=== PATIENT | female | born 1995 | race Caucasian/White ===

== ENCOUNTER 2018-01-04 18:05 | Observation (INO) | payer SELFPAY ==
[~2018-01-04] VITALS: Ht 162.6 cm; Wt 43.3 kg
[~2018-01-04 18:05] MED LIST: HYDR473S9 PO; HYDR474S3 PO
[2018-01-04] MEDS ORDERED: fentaNYL CITR 100 MCG/2 ML AMP IVP ONE ×2 (18:20→19:05)
[2018-01-04] MEDS ORDERED: ONDANSETRON 4 MG/2 ML VIAL IVP ONE (18:20)
[2018-01-04] MEDS ORDERED: LORazepam 2 MG/ML VIAL IVP ONE (18:20)
--- NOTE | 2018-01-04 18:27 | ER Report ---
History and Physical Time Seen By MD: 18:08 Hx. of Stated Complaint: RUQ AND BACK PAIN THAT RADIATE UP INTO CHEST. HPI/ROS CHIEF COMPLAINT: Abdomen, chest, back pain HISTORY OF PRESENT ILLNESS: Patient is a 22-year-old female who presents the ED with complaint of right upper quadrant abdominal pain that started about 3-4 hours ago. She states that it has been radiating into her back and then into her right chest area. She has had some nausea but denies any vomiting, diarrhea , constipation. She states that she has had some dysuria as well but has not noted any hematuria or increased urinary frequency. She denies any fever. She denies any shortness of breath. Patient that she was having some heartburn and did take some Tums with no relief. REVIEW OF SYSTEMS: Constitutional: No fever, no chills. Eyes: No discharge. ENT: No sore throat. Cardiovascular: See history of present illness. No palpitations. Respiratory: No cough, no shortness of breath. Gastrointestinal: See history of present illness. Genitourinary: See history of present illness. Musculoskeletal: See history of present illness. Skin: No rashes. Neurological: No headache. Allergies: Coded Allergies: shellfish derived (Verified Allergy, Unknown, 01/04/18) Home Meds Active Scripts Hydrocodone/Acetaminophen 7.5/325 MG/15 ML (Lortab 7.5 mg-325 mg/15 ml) 474 Ml Solution, 2 TSP PO Q4-6H Y for PAIN, #300 ML Prov:CELIO RENE GUM DIPPER 03/10/17 Reviewed Nurses Notes: Yes Old Medical Records Reviewed: Yes Hx Substance Use Disorder: No Constitutional Vital Sign - Last 24 Hours 01/04/18 01/04/18 01/04/18 01/04/18 18:09 18:10 18:12 18:20 Temp 97.5 Pulse 83 Resp 26 B/P (MAP) 141/127 (132) 141/127 119/103 (108) Pulse Ox 92 66 O2 Delivery Room Air 01/04/18 01/04/18 01/04/18 01/04/18 18:30 18:35 18:40 18:55 Pulse 75 62 Resp 12 33 B/P (MAP) 123/103 (110) Pulse Ox 82 96 01/04/18 01/04/18 01/04/18 01/04/18 19:00 19:10 19:25 19:30 Pulse 79 74 Resp 16 27 B/P (MAP) 126/105 (112) 122/77 (92) Pulse Ox 85 65 01/04/18 01/04/18 01/04/18 01/04/18 19:40 19:55 20:00 20:10 Pulse 76 70 84 Resp 12 6 22 B/P (MAP) 107/64 (78) Pulse Ox 99 100 100 01/04/18 01/04/18 01/04/18 01/04/18 20:15 20:30 20:45 21:00 Pulse 85 97 74 72 Resp 17 28 24 14 B/P (MAP) 112/69 (83) 117/77 (90) Pulse Ox 100 100 98 97 01/04/18 21:15 Pulse 59 Pulse Ox 98 Intake and Output 01/04/18 01/04/18 01/05/18 15:00 23:00 07:00 Intake Total 1000 ml Balance 1000 ml Physical Exam General Appearance: The patient is alert, has no immediate need for airway protection and no signs of toxicity. Patient appears to be in moderate distress. Eyes: Pupils equal and round no pallor or injection. ENT, Mouth: Mucous membranes are moist. Respiratory: There are no retractions, lungs are clear to auscultation. Cardiovascular: Regular rate and rhythm. Gastrointestinal: There is pain with palpation of the right upper quadrant area. She has not had any rebound but does have some some guarding. Normal bowel sounds in all 4 quadrants. Skin: Warm and dry, no rashes. Musculoskeletal: Neck is supple non tender. Extremities are nontender, nonswollen and have full range of motion. DIFFERENTIAL DIAGNOSIS: After history and physical exam differential diagnosis was considered for abdominal pain including but not limited to appendicitis, cholecystitis, gastritis and urinary tract infection. Medical Decision Making Data Points Result Diagram: 01/04/18 18101/04/18 181 Laboratory Hematology Test 01/04/18 18:10 01/04/18 20:10 Red Blood Count 4.95 M/uL (4.17-5.56) Mean Corpuscular Volume 85.9 fL (80.0-96.0) Mean Corpuscular Hemoglobin 29.9 pg (26.0-33.0) Mean Corpuscular Hemoglobin Concent 34.8 g/dL (32.0-36.0) Red Cell Distribution Width 12.1 % (11.5-14.5) Mean Platelet Volume 7.0 fL (7.2-11.1) Neutrophils (%) (Auto) 56.3 % (39.4-72.5) Lymphocytes (%) (Auto) 31.7 % (17.6-49.6) Monocytes (%) (Auto) 10.2 % (4.1-12.4) Eosinophils (%) (Auto) 1.2 % (0.4-6.7) Basophils (%) (Auto) 0.6 % (0.3-1.4) Nucleated RBC Relative Count (auto) 0.1 /100WBC Neutrophils # (Auto) 5.6 K/uL (2.0-7.4) Lymphocytes # (Auto) 3.2 K/uL (1.3-3.6) Monocytes # (Auto) 1.0 K/uL (0.3-1.0) Eosinophils # (Auto) 0.1 K/uL (0.0-0.5) Basophils # (Auto) 0.1 K/uL (0.0-0.1) Nucleated RBC Absolute Count (auto) 0.01 K/uL Sodium Level 140 mmol/L (137-145) Potassium Level 3.1 mmol/L (3.5-5.0) Chloride Level 99 mmol/L (98-107) Carbon Dioxide Level 26 mmol/L (22-31) Blood Urea Nitrogen 12 mg/dl (7-18) Creatinine 0.70 mg/dl (0.52-1.04) Glomerular Filtration Rate Calc > 60.0 Random Glucose 92 mg/dl (75-110) Calcium Level 9.5 mg/dl (8.4-10.2) Total Bilirubin 0.5 mg/dl (0.2-1.3) Aspartate Amino Transf (AST/SGOT) 69 U/L (0-35) Alanine Aminotransferase (ALT/SGPT) 122 U/L (0-56) Alkaline Phosphatase 99 U/L (0-126) Troponin I < 0.012 ng/ml Total Protein 8.2 gm/dl (6.3-8.2) Albumin 4.4 g/dl (3.5-5.0) Lipase 89 U/L (23-300) Human Chorionic Gonadotropin, Qual Negative (NEGATIVE) Serum Alcohol < 10 mg/dl Urine Color Yellow Urine Clarity Clear Urine pH 6.0 pH (4.8-9.5) Urine Specific [place] 1.016 Urine Protein Negative mg/dL (NEGATIVE) Urine Glucose (UA) Negative mg/dL (NEGATIVE) Urine Ketones Trace mg/dL (NEGATIVE) Urine Blood Negative (NEGATIVE) Urine Nitrite Negative (NEGATIVE) Urine Bilirubin Negative (NEGATIVE) Urine Urobilinogen Negative mg/dL (0.2-1.9) Urine Leukocyte Esterase Negative (NEGATIVE) Urine RBC <1 /HPF (0-2/HPF) Urine WBC 1 /HPF (0-5/HPF) Urine Squamous Epithelial Cells Many /LPF (</=FEW) Urine Bacteria Negative /HPF (NONE-FEW) Urine Mucus None /HPF (NONE-FEW) Chemistry Test 01/04/18 18:10 01/04/18 20:10 White Blood Count 10.0 k/uL (4.5-11.0) Red Blood Count 4.95 M/uL (4.17-5.56) Hemoglobin 14.8 g/dL (12.0-16.0) Hematocrit 42.5 % (34.0-47.0) Mean Corpuscular Volume 85.9 fL (80.0-96.0) Mean Corpuscular Hemoglobin 29.9 pg (26.0-33.0) Mean Corpuscular Hemoglobin Concent 34.8 g/dL (32.0-36.0) Red Cell Distribution Width 12.1 % (11.5-14.5) Platelet Count 295 K/uL (150-450) Mean Platelet Volume 7.0 fL (7.2-11.1) Neutrophils (%) (Auto) 56.3 % (39.4-72.5) Lymphocytes (%) (Auto) 31.7 % (17.6-49.6) Monocytes (%) (Auto) 10.2 % (4.1-12.4) Eosinophils (%) (Auto) 1.2 % (0.4-6.7) Basophils (%) (Auto) 0.6 % (0.3-1.4) Nucleated RBC Relative Count (auto) 0.1 /100WBC Neutrophils # (Auto) 5.6 K/uL (2.0-7.4) Lymphocytes # (Auto) 3.2 K/uL (1.3-3.6) Monocytes # (Auto) 1.0 K/uL (0.3-1.0) Eosinophils # (Auto) 0.1 K/uL (0.0-0.5) Basophils # (Auto) 0.1 K/uL (0.0-0.1) Nucleated RBC Absolute Count (auto) 0.01 K/uL Glomerular Filtration Rate Calc > 60.0 Calcium Level 9.5 mg/dl (8.4-10.2) Total Bilirubin 0.5 mg/dl (0.2-1.3) Aspartate Amino Transf (AST/SGOT) 69 U/L (0-35) Alanine Aminotransferase (ALT/SGPT) 122 U/L (0-56) Alkaline Phosphatase 99 U/L (0-126) Troponin I < 0.012 ng/ml Total Protein 8.2 gm/dl (6.3-8.2) Albumin 4.4 g/dl (3.5-5.0) Lipase 89 U/L (23-300) Human Chorionic Gonadotropin, Qual Negative (NEGATIVE) Serum Alcohol < 10 mg/dl Urine Color Yellow Urine Clarity Clear Urine pH 6.0 pH (4.8-9.5) Urine Specific [place] 1.016 Urine Protein Negative mg/dL (NEGATIVE) Urine Glucose (UA) Negative mg/dL (NEGATIVE) Urine Ketones Trace mg/dL (NEGATIVE) Urine Blood Negative (NEGATIVE) Urine Nitrite Negative (NEGATIVE) Urine Bilirubin Negative (NEGATIVE) Urine Urobilinogen Negative mg/dL (0.2-1.9) Urine Leukocyte Esterase Negative (NEGATIVE) Urine RBC <1 /HPF (0-2/HPF) Urine WBC 1 /HPF (0-5/HPF) Urine Squamous Epithelial Cells Many /LPF (</=FEW) Urine Bacteria Negative /HPF (NONE-FEW) Urine Mucus None /HPF (NONE-FEW) Toxicology Test 01/04/18 18:10 Serum Alcohol < 10 mg/dl Urinalysis Test 01/04/18 20:10 Urine Color Yellow Urine Clarity Clear Urine pH 6.0 pH (4.8-9.5) Urine Specific [place] 1.016 Urine Protein Negative mg/dL (NEGATIVE) Urine Glucose (UA) Negative mg/dL (NEGATIVE) Urine Ketones Trace mg/dL (NEGATIVE) Urine Blood Negative (NEGATIVE) Urine Nitrite Negative (NEGATIVE) Urine Bilirubin Negative (NEGATIVE) Urine Urobilinogen Negative mg/dL (0.2-1.9) Urine Leukocyte Esterase Negative (NEGATIVE) Urine RBC <1 /HPF (0-2/HPF) Urine WBC 1 /HPF (0-5/HPF) Urine Squamous Epithelial Cells Many /LPF (</=FEW) Urine Bacteria Negative /HPF (NONE-FEW) Urine Mucus None /HPF (NONE-FEW) EKG/Imaging Imaging Gallbladder US: IMPRESSION: Mild to moderate gallbladder distention. Small volume gallbladder sludge. Positive sonographic Asencio sign. No gallstone, gallbladder wall thickening or pericholecystic fluid. Report Dictated By: Liam Torres MD at 01/04/2018 8:19 PM Report E-Signed By: Liam Torres MD at 01/04/2018 8:22 PM CXR: IMPRESSION: Negative chest. Report Dictated By: Nakul Sharma MD at 01/04/2018 7:02 PM Report E-Signed By: Nakul Sharma MD at 01/04/2018 7:03 PM Abdomen/Pelvis CT: IMPRESSION: 1. The gallbladder is significantly distended with a small sliver of pericholecystic fluid. CT appearance is suspicious for cholecystitis. No calcified gallstones by CT. 2. No other acute intra-abdominal findings by noncontrast CT imaging. 3. The visualized appendix is unremarkable. 4. Trace amount of free fluid in the pelvis, within normal limits. Report Dictated By: Ralph Hameed MD at 01/04/2018 10:10 PM Report E-Signed By: Ralph Hameed MD at 01/04/2018 10:15 PM ED Course/Re-evaluation Clinical Indication for ER IV: Hydration ED Course Patient will be given 50 micrograms of fentanyl IV and 1mg IV lorazepam. Will obtain labs and CXR. 01/04/2018 7:03:00 pm - assessed all labs with patient. She does have some elevated liver enzymes. She denies any alcohol use or Tylenol use. She states that her mother did have some gallbladder issues in the past and she is concerned about this. She states that she has been having issues with heartburn recently. She states that the initial dose of the fentanyl did help but now she is having pain again. Will give her another 50 g of fentanyl IV and obtain a gallbladder ultrasound. 01/04/2018 10:35:59 pm - 4mg IV morphine for pain relief. Discussed CT results with patient. It is suspicious for cholecystitis. Discussed patient with Dr. Almaraz, surgeon, who will come and evaluate the patient. 01/04/2018 11:15:01 pm - Dr. Almaraz, surgery, will admit patient under his care with plan for surgery in the morning. Decision to Disposition Date: Jan 04, 2018 Decision to Disposition Time: 23:14 Depart Departure Latest Vital Signs Vital Signs Date Time Temp Pulse Resp B/P (MAP) Pulse Ox O2 Delivery O2 Flow Rate FiO2 01/04/18 21:15 59 98 01/04/18 21:00 14 117/77 (90) 01/04/18 18:10 97.5 Room Air Impression: Primary Impression: Acute cholecystitis Condition: Improved Disposition: Admitted from ER HOSTEL MANAGER/PA consult with MD: Verbally MD Consult Note: Dr. Teague, ED Dr. Almaraz, Surgery PHILL OLVERA PA-C Jan 04, 2018 18:27
[2018-01-04 18:30] LABS: PLATELET COUNT, AUTOMATED 295 K/uL (150-450)
[2018-01-04] MEDS ORDERED: NS(*) 0.9% 1000 ML BAG 1,000 ML IV ONE (18:55)
--- NOTE | 2018-01-04 19:06 | RADIOLOGY IMAGING REPORT ---
FACILITY: [facility] - [place] PATIENT NAME: Ashlie Leslie : 1995 MR: [id number] V: [id number] EXAM DATE: ORDERING PHYSICIAN: PHILL OLVERA TECHNOLOGIST: Location: [facility] [place] Patient: Ashlie Leslie : 1995 Visit/Account:[id number] Date of Sevice: 01/04/2018 Examination: CHEST PA AND LAT Comparison: None. History: chest pain Findings: Cardiac and hilar contour size is normal. No consolidation, nodule, or peribronchial inflam mation. No pneumothorax, edema, or effusion. Osseous structures are intact. IMPRESSION: Negative chest. Report Dictated By: Nakul Sharma MD at 01/04/2018 7:02 PM Report E-Signed By: Nakul Sharma MD at 01/04/2018 7:03 PM WSN:[id number]
--- NOTE | 2018-01-04 20:25 | RADIOLOGY IMAGING REPORT ---
FACILITY: [facility] - [place] PATIENT NAME: Ashlie Leslie : 1995 MR: [id number] V: [id number] EXAM DATE: ORDERING PHYSICIAN: PHILL OLVERA TECHNOLOGIST: Location: [facility] - [place], [place] Patient: Ashlie Leslie : 1995 Visit/Account:[id number] Date of Sevice: 01/04/2018 EXAMINATION: Right upper quadrant abdominal ultrasound HISTORY: Right upper quadrant pain COMPARISON: None. FINDINGS: The partially visualized IVC and aorta are normal. The liver is normal in echogenicity and size. The gallbladder is mild to moderately distended. No gallstones or gallbladder wall thickening. No per icholecystic fluid. Positive sonographic Asencio sign. Common bile duct is normal measuring 2 mm. Smal l amount of gallbladder sludge. Normal right kidney measures 10.1 cm sagittal dimension. IMPRESSION: Mild to moderate gallbladder distention. Small volume gallbladder sludge. Positive sonographic Asencio sign. No gallstone, gallbladder wall thickening or pericholecystic fluid. Report Dictated By: Liam Torres MD at 01/04/2018 8:19 PM Report E-Signed By: Liam Torres MD at 01/04/2018 8:22 PM WSN:[id number]
[2018-01-04] MEDS ORDERED: MORPHINE 4 MG/ML SDV IVP ONE (21:35)
--- NOTE | 2018-01-04 22:19 | RADIOLOGY IMAGING REPORT ---
FACILITY: [facility] - [place] PATIENT NAME: Ashlie Leslie : 1995 MR: [id number] V: [id number] EXAM DATE: ORDERING PHYSICIAN: PHILL OLVERA TECHNOLOGIST: Location: [facility] Patient: Ashlie Leslie : 1995 Visit/Account:[id number] Date of Sevice: 01/04/2018 EXAMINATION: CT abdomen and pelvis without IV contrast HISTORY: Right upper quadrant and right lower quadrant pain with palpation. TECHNIQUE: Axial CT images of the abdomen and pelvis were obtained without IV contrast, with ferreira l and sagittal 2D reconstructed images. One of the following dose optimization techniques was utilized in the performance of this exam: Autom ated exposure control; adjustment of the mA and/or kV according to the patient's size; or use of an i terative reconstruction technique. Specific details can be referenced in the facility's radiology C T exam operational policy. COMPARISON: Abdominal ultrasound performed earlier today. FINDINGS: Evaluation of the solid and viscus parenchymal organs is limited without the benefit of IV contrast. Liver: Negative. Gallbladder and bile ducts: The gallbladder is significantly distended, measuring up to 4 cm in diam eter, and at least 9 cm in length. No calcified gallstones. There is a small sliver of pericholecysti c fluid. No bile duct dilatation. Spleen: Negative. Pancreas: Negative. Adrenal glands: Negative. Kidneys: Negative. No urinary calculi or hydronephrosis. Bowel and peritoneum: The small bowel and colon are normal in caliber. No bowel obstruction. The rosaura endix is segmentally visualized in the right lower quadrant and unremarkable where seen. Trace amount of free fluid in the pelvis. No free intraperitoneal air. Pelvic structures: Grossly unremarkable by CT. No large adnexal cyst in the pelvis. Lymph node assessment: Negative. Vessels: Normal caliber abdominal aorta. Musculoskeletal: Negative. Body wall: Negative. Lung bases: Negative. IMPRESSION: 1. The gallbladder is significantly distended with a small sliver of pericholecystic fluid. CT appear ance is suspicious for cholecystitis. No calcified gallstones by CT. 2. No other acute intra-abdominal findings by noncontrast CT imaging. 3. The visualized appendix is unremarkable. 4. Trace amount of free fluid in the pelvis, within normal limits. Report Dictated By: Ralph Hameed MD at 01/04/2018 10:10 PM Report E-Signed By: Ralph Hameed MD at 01/04/2018 10:15 PM WSN:[id number]
[2018-01-04] MEDS ORDERED: NORMOSOL R SOLN(*) 1000 ML BAG 1,000 ML IV PRN (23:24)
--- NOTE | 2018-01-04 23:24 | General Surgery 1 H&P ---
History of Present Illness Chief Complaint abdominal pain History of Present Illness 22 yo female with a one day history of epigastric and right upper quadrant pain with radiation to the back, nausea, no emesis, no fever. she has had several similar episodes in the past, never as severe or as persistent. seen in ed, ultrasound shows sludge in the gall bladder. ct shows acute cholecystis. History Other Past Surgeries: toe and control implant Home Meds Active Scripts Hydrocodone/Acetaminophen 7.5/325 MG/15 ML (Lortab 7.5 mg-325 mg/15 ml) 474 Ml Solution, 2 TSP PO Q4-6H Y for PAIN, #300 ML Prov:CELIO RENE RAILROAD SHOP INSPECTOR 03/10/17 Allergies: Coded Allergies: shellfish derived (Verified Allergy, Unknown, 01/04/18) Review of Systems All Systems Reviewed/Normal: Yes Exam Vital Signs Date Time Temp Pulse Resp B/P (MAP) Pulse Ox O2 Delivery O2 Flow Rate FiO2 01/04/18 21:15 59 98 01/04/18 21:00 14 117/77 (90) 01/04/18 18:10 97.5 Room Air General Appearance: Alert, Awake Cardiovascular: Regular Rate and Rhythm Respiratory: Clear to Auscultation GI: Other (soft with guarding in the right upper quadrant.) Medical Decision Making Data Points Result Diagram: 01/04/18180901/04/181809 Assessment and Plan Problems: (1) Acute cholecystitis Status: Acute Assessment & Plan: admit and proceed with a laparoscopic cholecystectomy in the morning. Copies to: ANDREW CARLSON MD Venous Thromboembolism Antithrombotics Is Pt On Any Antithrombotics?: No ANDREW CARLSON MD Jan 04, 2018 23:24
[2018-01-04] MEDS ORDERED: ONDANSETRON 4 MG/2 ML VIAL IVP PRN (23:25)
[2018-01-04] MEDS ORDERED: MORPHINE 1 MG/ML 30 ML PCA IV PRN (23:25)
[2018-01-04 23:38] VITALS: BP 114/73
[2018-01-05] MEDS: ACETAMINOPHEN(*)1000 MG/100 ML 100 ML IVPB SCH ×2 (00:03→06:32)
[2018-01-05] MEDS: cefOXitin/DEX(*) 1GM/50ML PREM 50 ML IVPB SCH ×2 (00:04→07:47)
[2018-01-05 01:02] VITALS: Ht 162.6 cm; Wt 43.3 kg
[2018-01-05] MEDS ORDERED: IOPAMIDOL 61% 75 ML INFUS BTL 0 ML ONE (07:18)
[2018-01-05] MEDS ORDERED: ROPIVACAINE 0.2% 20 ML VIAL ONE (07:18)
[2018-01-05 07:38] VITALS: BP 81/58
--- NOTE | 2018-01-05 07:38 | Post Operative Progress Note ---
Post Operative Progress Note Date: Jan 05, 2018 Time: 09:06 Surgeon: jen Anesthesia: dr vazquez Pre-Op Diagnosis: acute cholecystitis Post-Op Diagnosis: same Procedure(s): lap alia with ANDREW Almeida MD Jan 05, 2018 07:38
[2018-01-05] MEDS ORDERED: HYDR-4309 PO (07:39)
[2018-01-05] MEDS ORDERED: KET10 PO (07:39)
[2018-01-05] MEDS ORDERED: ROCURONIUM BROM 10 MG/ML 10 ML ONE (07:41)
[2018-01-05] MEDS ORDERED: SUCCINYLCHOL CHL 200MG/10ML VL ONE (07:41)
[2018-01-05] MEDS ORDERED: PROPOFOL EMUL(*) 10MG/ML 20 ML 20 ML ONE (07:41)
[2018-01-05] MEDS ORDERED: ONDANSETRON 4 MG/2 ML VIAL ONE (07:41)
[2018-01-05] MEDS ORDERED: KETOROLAC 30 MG/ML VIAL ONE (07:41)
[2018-01-05] MEDS ORDERED: DEXAMETHASONE SOD PHOS 10MG/ML ONE (07:41)
[2018-01-05] MEDS ORDERED: LIDOCAINE MPF 1% 5 ML VIAL ONE (07:41)
--- NOTE | 2018-01-05 07:41 | Short(Outpt) Discharge Summary ---
Discharge Summary Reason for Hosp/Final Diag: (1) Acute cholecystitis Status: Acute Hospital Course & Plan: admit and proceed with a laparoscopic cholecystectomy in the morning. laparoscopic cholecystectomy Departure Discharge to: Home Discharge Instructions Home Meds Active Scripts Hydrocodone Bit/Acetaminophen (NORCO 5-325 TABLET) 1 Each Tablet, 1 EACH PO Q4H Y for PAIN, #30 TAB Prov:ANDREW CARLSON MD 01/05/18 Ketorolac Tromethamine (KETOROLAC TROMETHAMINE) 10 Mg Tab, 10 MG PO Q6H, #20 TAB Prov:ANDREW CARLSON MD 01/05/18 Hydrocodone/Acetaminophen 7.5/325 MG/15 ML (Lortab 7.5 mg-325 mg/15 ml) 474 Ml Solution, 2 TSP PO Q4-6H Y for PAIN, #300 ML Prov:CELIO RENE DINING SERVICES DIRECTOR 03/10/17 Diet: Regular Activity: As Tolerated Special Instructions: ice to incision for 48 hours remove bandage and shower sunday to see me in office in one week, call [phone] for apt ANDREW CARLSON MD Jan 05, 2018 07:41
--- NOTE | 2018-01-05 07:42 | General Surgery Progress Note ---
Subjective Progress Notes Subjective slept some last pm sore this morning. Physical Exam Vital Signs Date Time Temp Pulse Resp B/P (MAP) Pulse Ox O2 Delivery O2 Flow Rate FiO2 01/05/18 07:38 97.8 59 12 81/58 (66) 96 Room Air 01/04/18 23:45 1.0 General Appearance: Alert, Awake, No Acute Distress GI: Other (soft less tender) Result Diagram: 01/04/18180901/04/181809 Assessment and Plan Problems: (1) Acute cholecystitis Status: Acute Assessment & Plan: admit and proceed with a laparoscopic cholecystectomy in the morning. laparoscopic cholecystectomy 01/05/18 will proceed with lap alia. Exam Sepsis Risk: No Definite Risk ANDREW CARLSON MD Jan 05, 2018 07:42
[2018-01-05] MEDS ORDERED: NS 0.9% IRRIGATION 1000ML PLCT IR ONE (08:24)
[2018-01-05] MEDS ORDERED: HYDROmorphone HCL 2 MG/ML SDV ONE (08:33)
[2018-01-05] MEDS ORDERED: SUGAMMADEX SOD 200 MG/2 ML SDV ONE (08:53)
--- NOTE | 2018-01-05 08:57 | RADIOLOGY IMAGING REPORT ---
FACILITY: [facility] - [place] PATIENT NAME: Ashlie Leslie : 1995 MR: [id number] V: [id number] EXAM DATE: ORDERING PHYSICIAN: ANDREW CARLSON TECHNOLOGIST: Location: [facility] - [place] Patient: Ashlie Leslie : 1995 Visit/Account:[id number] Date of Sevice: 01/05/2018 EXAMINATION: OR fluoroscopy intraoperative cholangiogram HISTORY: Cholecystitis. COMPARISON: Right upper quadrant abdominal ultrasound and CT abdomen and pelvis from 01/04/2018. FLUOROSCOPY TIME: 9.7 seconds. DOSE: DAP was 0.82790 mGy*m2. FINDINGS: Multiple fluoroscopic images of the abdomen were obtained intraoperatively. There are surg ical clips in the gallbladder fossa with cannulation of the cystic duct and injection of contrast. Th ere is no biliary ductal dilatation. There is no filling defect visualized in the common bile duct, a nd there is prompt spill of contrast into the duodenum. Visualized intrahepatic ducts are normal. IMPRESSION: No biliary ductal dilatation or choledocholithiasis. Please see the performing physician's notes for full details. Report Dictated By: Johana Herring MD at 01/05/2018 8:50 AM Report E-Signed By: Johana Herring MD at 01/05/2018 8:53 AM WSN:[id number]
[2018-01-05] MEDS ORDERED: PANTOPRAZOLE SOD 40 MG IV VIAL IVP SCH (09:00)
[2018-01-05] MEDS ORDERED: APAP/HYDROCODONE 325/5 TAB PO PRN (09:10)
[2018-01-05] MEDS ORDERED: IOPAMIDOL 61% 100 ML INFUS BTL 100 ML ONE (09:13)
[2018-01-05] MEDS ORDERED: fentaNYL CITR 100 MCG/2 ML AMP ONE (09:23)
[2018-01-05 10:35] VITALS: BP 109/80
[2018-01-05] MEDS ORDERED: KETOROLAC 30 MG/ML VIAL IVP ONE (11:40)
[2018-01-05 11:51] VITALS: BP 116/57
--- NOTE | 2018-01-05 13:36 | OPERATIVE REPORT 1 ---
EVENT DATE: January 05, 2018 SURGEON: Fausto Almaraz MD ANESTHESIOLOGIST: Zeyad Vasquez MD ANESTHESIA: General. PREOPERATIVE DIAGNOSIS Acute cholecystitis. POSTOPERATIVE DIAGNOSIS Acute cholecystitis. PROCEDURE PERFORMED Laparoscopic cholecystectomy with intraoperative cholangiogram. DESCRIPTION OF PROCEDURE The patient was placed in the supine position and given general anesthetic. Her abdomen was prepped and draped in a sterile fashion. The skin was anesthetized with 0.2% ropivacaine. A small incision was made inferior to the umbilicus. A Veress needle was inserted, and the abdomen was insufflated with CO2. We then placed a 5 mm port under direct vision. We then placed two 5 mm ports in the right subcostal region and a 10 mm in the epigastrium. The gallbladder was visualized. It was distended and edematous. It was grasped and raised cephalad. We dissected out the cystic duct and gallbladder junction , placed a clip there, opened the cystic duct, and inserted a Taut catheter. We obtained cholangiograms which were normal. We removed the Taut catheter. The cystic duct was triply clipped proximally and transected. The cystic artery was dissected out, doubly clipped proximally, once distally, and transected. We then used electrocautery to dissect the gallbladder from the bed of the liver. Note should be made when we placed the needle for our Taut catheter, we had some bleeding from the anterior abdominal wall. After the catheter was removed, it continued to drip, so a small incision was made, and we used a suture passer to place an 0 Vicryl suture around the needle puncture site and ligate this. After we did this, we had excellent hemostasis. Back to the gallbladder, the gallbladder was removed from the fossa with electrocautery. It had excellent hemostasis. The gallbladder was placed in an Endo Pouch, and we removed it from the field. We then suction irrigated and inspected for bleeding. We had perfect hemostasis in the gallbladder fossa. The ports were removed under direct vision. No bleeding was noted from the port sites. We also reduced the pressure, waited a minute, and then reinspected the Taut catheter site where we had placed the suture, and that seemed to have perfect hemostasis as well. The skin was then closed with interrupted 4-0 Maxon. Steri-Strips and an Airstrip were placed. DION
== END 2018-01-05 10:50 | disposition home or self-care (01) ==
LOC: ER 18:10 → INTOOBSV 23:15 → MED 23:15
PROVIDERS: ADMIT Surgery; ATTEND Surgery
DX: K81.0 Acute cholecystitis (principal)
CPT/HCPCS: 47563; 71046; 74176; 74300; 76705; 80320; 81001; 83690; 84484; 84703; 85025; 96361; 96374; 96375; 96376; 99285; C9113; G0378; J0131; J0330; J0694; J1100; J1170; J1885; J2001; J2060; J2270; J2405; J2704; J2795; J3010; J7030; Q9967; 82040; 82247; 82310; 82374; 82435; 82565; 82947; 84075; 84132; 84155; 84295; 84450; 84460; 84520; 88304